=== PATIENT | male | born 1980 | race Caucasian/White ===

== ENCOUNTER 2018-02-14 19:15 | Emergency (ER) | payer BC, OTHER ==
[2018-02-14 19:25] VITALS: BP 145/90; PULSE 110
--- NOTE | 2018-02-14 19:38 | PDOC ---
History of Present Illness - History of Present Illness Initial Comments: 02/14/18 19:54 Patient reports being at home when he began to suddenly experience LLQ pain that he states has been constant. He reports pain is a dull achy that has begun to radiate to his left flank. Patient reports reports experiencing associated symptoms of night sweats last night, fever, and dizziness, prompting him to come into the ED for further evaluation. He reports abdominal pain feels similar to gas pain but states he has been able to move his bowels and pass gas with no complications. Denies chest pain, Sob. Denies nausea, vomiting. Denies fevers, chills. Denies contact with sick individuals, out of state travelling. Denies diarrhea, constipation. Denies dysuria, hematuria. Denies any other symptoms. Allergies: None Social history: No smoking. No illicit drugs. No alcohol. Surgical history: None PMD: Dr. Shin Adult ROS General: +Fever. No chills, no weakness, no weight loss HEENT: No change in vision. No sore throat, No ear pain Cardiovascular: No chest pain or shortness of breath Respiratory:No cough, or wheezing. Gastrointestinal: No nausea, vomiting, diarrhea or constipation, No rectal bleeding Genitourinary: No dysuria, hematuria, or frequency Musculoskeletal: +Abdominal pain. No joint or muscle pain or swelling Neurologic: +Dizziness. No headache, vertigo or loss of consciousness Psychiatric: No depression Skin: No rashes or easy bruising Endocrine: No increased thirst or abnormal weight change Allergic: No skin or latex allergy All other systems reviewed and normal Adult PE General: Well-nourished well-developed individual, no acute distress HEENT: Throat: Normal, tonsils normal, no erythema or exudate Neck: Supple, no meningeal signs, no lymphadenopathy Eyes:Pupils equal reactive and round, extraocular motion intact Chest: Nontender to palpation Cardiac: S1-S2 normal, regular rate and rhythm, no murmurs rubs or gallops Respiratory: Lungs clear to auscultation bilateral Abdomen: +Mild LLQ abdominal tenderness. Soft, nondistended, normal bowel sounds, nontender to palpation diffusely Extremities: Warm, dry, no cyanosis, clubbing, or edema Skin: No rashes Neuro: Alert and oriented x3, nonfocal exam, grossly intact, normal gait Psych: Normal mood and affect <Dakota Puentes - Last Filed: 02/14/18 19:54> - General History Source: Patient Exam Limitations: No Limitations - History of Present Illness Initial Comments: 02/14/18 20:01 A portion of this note was documented by scribe services under my direction. I have reviewed the details of the note, within reason, and agree with the documentation with the following case summary and management plan written by me. Patient treated in the ED. Nursing notes are reviewed and incorporated into the medical decision-making. Vital signs reviewed. Peripheral IV access obtained by the nurse, laboratory studies are drawn and sent, reviewed and interpreted by myself. Medical decision making: This is a 37-year-old male with history significant for sarcoidosis who comes in with left lower abdominal pain. On my exam there was minimal tenderness and no guarding or rebound. However patient was febrile and did have some urinary symptoms so we'll obtain a workup and most likely due a CAT scan as well depending upon the results of the workup. 02/14/18 22:48 Patient's workup revealed a white count of 11.0 so a CAT scan was obtained to rule out diverticulitis in addition that his urine was positive for blood so it was also rule out renal stones. CAT scan did show diverticulitis which was mild there was no perforation or free air. Patient given Zosyn and Flagyl and will be discharged home on Levaquin and Flagyl. Patient will follow-up with his primary care doctor Patient feels better and is able to tolerate by mouth's 02/14/18 22:53 <Ashley Gracia I - Last Filed: 02/14/18 23:04> - General Chief Complaint: Pain Stated Complaint: LLQ PAIN Time Seen by Provider: 02/14/18 19:38 Past History <Dakota Puentes - Last Filed: 02/14/18 19:54> - Past Medical History COPD: No Other medical history: SCARCODOSIS - Suicide/Smoking/Psychosocial Hx Smoking History: Unknown if ever smoked Have you smoked in the past 12 months: No Number of Cigarettes Smoked Daily: 4 Information on smoking cessation initiated: No Hx Alcohol Use: No Drug/Substance Use Hx: No Substance Use Type: None <Ashley Gracia I - Last Filed: 02/14/18 23:04> - Past Medical History Allergies/Adverse Reactions: Allergies Allergy/AdvReac Type Severity Reaction Status Date / Time No Known Allergies Allergy Verified 01/09/15 18:08 Home Medications: Ambulatory Orders levoFLOXacin [Levaquin -] 500 mg PO DAILY #10 tablet 02/14/18 metroNIDAZOLE [Flagyl -] 500 mg PO BID #20 tablet 02/14/18 *Physical Exam - Vital Signs Last Vital Signs Temp Pulse Resp BP Pulse Ox 100.4 F H 110 H 14 145/90 99 02/14/18 19:17 02/14/18 19:17 02/14/18 19:17 02/14/18 19:17 02/14/18 19:17 <Dakota Puentes - Last Filed: 02/14/18 19:54> - Vital Signs Last Vital Signs Temp Pulse Resp BP Pulse Ox 100.4 F H 110 H 14 145/90 99 02/14/18 19:17 02/14/18 19:17 02/14/18 19:17 02/14/18 19:17 02/14/18 19:17 <Ashley Gracia I - Last Filed: 02/14/18 23:04> ED Treatment Course - LABORATORY CBC & Chemistry Diagram: 02/14/18 20:10 02/14/18 20:10 <Ashley Gracia I - Last Filed: 02/14/18 23:04> *DC/Admit/Observation/Transfer - Attestations Scribe Attestion: 02/14/18 19:54 Documentation prepared by Dakota Puentes, acting as medical geneticist for Ashley Gracia MD. <Dakota Puentes - Last Filed: 02/14/18 19:54> <Ashley Gracia I - Last Filed: 02/14/18 23:04> Diagnosis at time of Disposition: Diverticulitis - Discharge Dispostion Disposition: HOME Condition at time of disposition: Good - Prescriptions Prescriptions: levoFLOXacin [Levaquin -] 500 mg PO DAILY #10 tablet metroNIDAZOLE [Flagyl -] 500 mg PO BID #20 tablet - Referrals Referrals: Cat Shin MD [Primary Care Provider] - - Patient Instructions Printed Discharge Instructions: DI for Diverticulitis Additional Instructions: Take Levaquin 1 tablet a day for 10 days. Take Flagyl 1 tablet twice a day for 10 days. Take Levaquin 1 tablet a day for the next 10 days. Take Flagyl 1 tablet twice a day for the next 10 days. A diverticulitis diet is recommend as part of a short-term treatment plan for acute diverticulitis. Diverticula are small, bulging pouches that can form in the lining of the digestive system. They're found most often in the lower part of the large intestine (colon). This condition is called diverticulosis. In some cases, one or more of the pouches become inflamed or infected. This is known as diverticulitis. Mild cases of diverticulitis are usually treated with antibiotics and a diverticulitis diet, which includes clear liquids and low-fiber foods. More- severe cases typically require hospitalization. A diverticulitis diet is a temporary measure to give your digestive system a chance to rest. Oral intake is usually reduced until bleeding and diarrhea subside. A diverticulitis diet starts with only clear liquids for a few days. Examples of items allowed on a clear liquid diet include: Broth Fruit juices without pulp, such as apple juice Ice chips Ice pops without bits of fruit or fruit pulp Gelatin Water Tea or coffee without cream As you start feeling better, your doctor will recommend that you slowly add low- fiber foods. Examples of low-fiber foods include: Canned or cooked fruits without skin or seeds Canned or cooked vegetables such as green beans, carrots and potatoes (without the skin) Eggs, fish and poultry Refined white bread Fruit and vegetable juice with no pulp Low-fiber cereals Milk, yogurt and cheese eat yogurt at least once a day as it will help replenish the healthy bacteria in your intestines that the antibiotics kill. White rice, pasta and noodles You should feel better within two or three days of starting the diet and antibiotics. If you haven't started feeling better by then, call your doctor. Also contact your doctor if: You develop a fever Your abdominal pain is worsening You're unable to keep clear liquids down These may indicate a complication that requires hospitalization. The diverticulitis diet has few risks. However, continuing a clear liquid diet for more than a few days can lead to weakness and other complications, since it doesn't provide enough of the nutrients your body needs. For this reason, I recommend you to transition to the low fiberl diet as soon as you can tolerate it and then back to a normal diet once you finish the antibiotics. Return to the emergency department immediately with ANY new, persistent or worsening symptoms. Continue any medications as previously prescribed by your physician. You should follow up with your primary doctor as soon as possible regarding today's emergency department visit. . Please make sure your doctor reviews the results of your emergency evaluation. Thank you for coming to the Emergency Department today for your care. It was a pleasure to see you today. Please note that your evaluation is INCOMPLETE until you follow-up with your doctor. - Post Discharge Activity
[2018-02-14] MEDS ORDERED: SODIUM CHLORIDE 1,000 ML IV ONE (20:14)
[2018-02-14 20:16] LABS: BASO % 0.3 % (0-2.0); EOS % 2.1 % (0-4.5); HEMATOCRIT 47.1 % (35.4-49); HEMOGLOBIN 15.8 GM/dl (11.7-16.9); LYMPH % 15.6 % (8-40); MCH 31.9 pg (25.7-33.7); MCHC 33.6 g/dl (32.0-35.9); MEAN CELL VOLUME 94.8 fl (80-96); PLATELET COUNT 265 K/MM3 (134-434); RBC 4.97 M/mm3 (4.00-5.60); RDW 12.1 % (11.9-15.9)
[2018-02-14 20:29] LABS: ALBUMIN 4.4 g/dl (3.5-5.0); ALK PHOS 71 U/L (32-92); ANION GAP 8 MMOL/L (8-16); BILIRUBIN,TOTAL 1.1 mg/dl (0.2-1.0); BLOOD UREA NITROGEN 12 mg/dl (7-18); CALCIUM 9.2 mg/dl (8.4-10.2); CHLORIDE 97 mmol/L (98-107); CO2 28 mmol/L (22-28); CREATININE 0.9 mg/dl (0.6-1.3); GLUCOSE,RANDOM 102 mg/dl (74-106); POTASSIUM 3.9 mmol/L (3.5-5.1); SGOT/AST 36 U/L (10-42); SGPT/ALT 56 U/L (10-40); SODIUM 133 mmol/L (136-145); TOT PROT 8.1 g/dl (6.4-8.3)
[2018-02-14 20:36] LABS: URINE APPEARANCE Clear; URINE BILIRUBIN Negative (NEGATIVE); URINE COLOR Amber; URINE GLUCOSE (UA) Negative (NEGATIVE); URINE KETONE Negative (NEGATIVE); URINE LEUK ESTERASE Negative (NEGATIVE); URINE NITRITE Negative (NEGATIVE); URINE PROTEIN Negative (NEGATIVE); URINE UROBILINOGEN 0.2 (0.2-1.0)
[2018-02-14 20:54] LABS: URINE RBC 0-1 /hpf (0-3)
[2018-02-14] MEDS ORDERED: PIPERACILLIN/TAZOBACTAM 3.375 GM VIAL IVPB ONE (22:37)
[2018-02-14] MEDS ORDERED: PIPERACILLIN/TAZOB 4.5 GM 4.5 GM in DEXTROSE 5%-WATER 100 ML IVPB ONE (22:38)
[2018-02-14] MEDS ORDERED: PIPERACILLIN/TAZOBACTAM 4.5 GM VIAL IVPB ONE (22:43)
[2018-02-14 22:56] VITALS: TEMP 99
== END 2018-02-15 00:32 | disposition home or self-care (01) ==
LOC: FER 19:15
PROC: 3E03329 Introduction of Other Anti-infective into Peripheral Vein, Percutaneous Approach (ICD-10-PCS; principal; 2018-02-14)
PROC: 3E0337Z Introduction of Electrolytic and Water Balance Substance into Peripheral Vein, Percutaneous Approach (ICD-10-PCS; 2018-02-14)
DX: K57.92 Diverticulitis of intestine, part unspecified, without perforation or abscess without bleeding (principal); D86.9 Sarcoidosis, unspecified
CPT/HCPCS: 36415; 74177-TC; 80053; 81003; 81015; 82550; 82553; 83690; 84484; 85025; 87040; 87086; 99283-25; J7030